=== PATIENT | female | born 1980 | race Caucasian/White ===

== ENCOUNTER 2018-08-08 09:54 | Observation (INO) | payer OTHER ==
[~2018-08-08] VITALS: Ht 172.7 cm; Wt 114.2 kg
[2018-08-08] MEDS ORDERED: ASPIRIN 81 MG TABLET CHEW PO ONE (10:30)
[2018-08-08] MEDS ORDERED: NITROGLYCERIN SINGLE TAB 0.4 MG SL ONE (10:51)
[2018-08-08] MEDS ORDERED: ASPIRIN 81 MG TABLET CHEW ONE (10:51)
[2018-08-08 10:59] LABS: BASOPHILS # (AUTO) 0.02 x10^3/uL (0-0.1); BASOPHILS % (AUTO) 0 % (0-1); EOSINOPHILS # (AUTO) 0.65 x10^3/uL (0-0.4); EOSINOPHILS % (AUTO) 8 % (1-7); LYMPHOCYTES # (AUTO) 2.48 x10^3/uL (1-3.4); LYMPHOCYTES % (AUTO) 31 % (22-44); MD NO; MEAN CORPUSCULAR HEMOGLOBIN 31.4 pg (27.0-34.8); MEAN CORPUSCULAR HGB CONC 34.4 g/dL (32.4-35.8); MEAN CORPUSCULAR VOLUME 91.3 fL (80-100); MEAN PLATELET VOLUME 7.1 fL (7.4-10.4); MONOCYTES # (AUTO) 0.51 x10^3/uL (0.2-0.8); MONOCYTES % (AUTO) 6 % (2-9); NEUTROPHILS # (AUTO) 4.44 x10^3/uL (1.8-6.8); NEUTROPHILS % (AUTO) 55 % (42-75); PLATELET COUNT 358 x10^3/uL (130-400); RED BLOOD COUNT 4.64 x10^6/uL (3.82-5.3); RED CELL DISTRIBUTION WIDTH 13.1 % (9.6-15.2)
[2018-08-08 11:12] LABS: CALCIUM 8.8 mg/dL (8.5-10.1); CHLORIDE 105 mmol/L (98-107)
[2018-08-08] MEDS: NITROGLYCERIN SINGLE TAB 0.4 MG SL PRN ×2 (11:19→11:27)
[2018-08-08 11:20] LABS: ALBUMIN 3.8 g/dL (3.4-5.0); ANION GAP 8 mmol/L (5-15); CREATININE 0.61 mg/dL (0.55-1.02); TROPONIN I < 0.015 ng/mL (0.000-0.045)
[2018-08-08] MEDS ORDERED: OMEP-110 PO (11:24)
[2018-08-08] MEDS ORDERED: SERT25TA PO (11:24)
[2018-08-08] MEDS ORDERED: ACET-1600 PO (11:24)
[2018-08-08] MEDS ORDERED: POLYETHYLENE GLYCOL 17 GM PACKET PO PRN (13:00)
[2018-08-08] MEDS ORDERED: ACETAMINOPHEN 325 MG TABLET PO PRN (13:00)
[2018-08-08] MEDS ORDERED: hydrALAzine 20 MG/ML, 1ML IVPush PRN (13:00)
[2018-08-08] MEDS ORDERED: BISACODYL 10 MG SUPP PR PRN (13:00)
[2018-08-08] MEDS ORDERED: DOCUSATE 100 MG CAPSULE PO PRN (13:00)
[2018-08-08] MEDS ORDERED: NITROGLYCERIN 0.4 MG BOTTLE (25 TABS) SL PRN (13:00)
[2018-08-08] MEDS ORDERED: ONDANSETRON 2MG/ML, 2ML IVPush PRN (13:00)
[2018-08-08] MEDS ORDERED: morphine SULFATE 10 MG/ML, 1ML IVPush PRN (13:00)
[2018-08-08 13:27] LABS: TROPONIN I < 0.015 ng/mL (0.000-0.045)
[2018-08-08 13:52] LABS: THYROID STIMULATING HORMONE 1.5 mIU/L (0.358-3.740)
[2018-08-08] MEDS ORDERED: ENOXAPARIN 40 MG/0.4 ML SQ SCH (15:00)
[2018-08-08 16:27] VITALS: BP 130/81
[2018-08-08 19:04] VITALS: BP 126/83
[2018-08-08 19:55] LABS: TROPONIN I < 0.015 ng/mL (0.000-0.045)
[2018-08-08] MEDS: SODIUM CHLORIDE FLUSH 10ML SYR IVF SCH (20:33)
[2018-08-09 01:57] VITALS: BP 123/81
[2018-08-09 05:42] LABS: CHOL/HDL RATIO 5.2; LDL/HDL RATIO 2.9 (0.5-3.0)
[2018-08-09] MEDS ORDERED: OMEPRAZOLE 20 MG CAPSULE.DR PO SCH (07:30)
[2018-08-09 08:33] VITALS: BP 103/50
[2018-08-09] MEDS ORDERED: SERTRALINE 50MG TABLET PO SCH (09:00)
[2018-08-09] MEDS: SODIUM CHLORIDE FLUSH 10ML SYR IVF SCH (11:07)
[2018-08-09 14:52] VITALS: BP 134/66
== END 2018-08-09 16:42 | disposition home or self-care (01) ==
LOC: ED 10:55 → INTOOBSV 11:57 → EDIP 11:57 → 5SO 14:43
PROVIDERS: ADMIT Hospitalist; ATTEND Hospitalist
DX: R07.9 Chest pain, unspecified (principal); E78.5 Hyperlipidemia, unspecified; R06.02 Shortness of breath; F32.9 Major depressive disorder, single episode, unspecified; F41.1 Generalized anxiety disorder; J45.909 Unspecified asthma, uncomplicated; K21.9 Gastro-esophageal reflux disease without esophagitis; K22.4 Dyskinesia of esophagus; Z82.49 Family history of ischemic heart disease and other diseases of the circulatory system; Z83.3 Family history of diabetes mellitus; Z87.891 Personal history of nicotine dependence
CPT/HCPCS: 36415; 71045; 78452; 80048; 80061; 82040; 82607; 83735; 84443; 84484; 85025; 85379; 90471; 90656; 93005; 93017; 93306; 93880; 93971; 96372; 96374; 99285; A9502; C9898; G0378; J1650; J2405

== ENCOUNTER 2018-09-01 09:53 | Observation (INO) | payer OTHER ==
[~2018-09-01] VITALS: Ht 172.7 cm; Wt 113.8 kg
[~2018-09-01 09:53] MED LIST: ACET-1600 PO; OMEP-110 PO; SERT25TA PO
[2018-09-01] MEDS ORDERED: FAMOTIDINE 20 MG TABLET ONE (10:28)
[2018-09-01] MEDS ORDERED: ONDANSETRON ODT 4 MG ONE (10:28)
[2018-09-01] MEDS ORDERED: MAALOX/HYOSCYAMINE/LIDOCAINE 45 ML BTL ONE (10:28)
[2018-09-01] MEDS ORDERED: ONDANSETRON ODT 4 MG PO ONE (10:30)
[2018-09-01] MEDS ORDERED: MAALOX/HYOSCYAMINE/LIDOCAINE 45 ML BTL PO ONE (10:30)
[2018-09-01] MEDS ORDERED: FAMOTIDINE 20 MG TABLET PO ONE (10:30)
[2018-09-01 10:40] LABS: MEAN CORPUSCULAR HEMOGLOBIN 30.5 pg (27.0-34.8); MEAN CORPUSCULAR HGB CONC 33.6 g/dL (32.4-35.8); MEAN CORPUSCULAR VOLUME 90.9 fL (80-100); MEAN PLATELET VOLUME 7.1 fL (7.4-10.4); PLATELET COUNT 314 x10^3/uL (130-400); RED BLOOD COUNT 4.47 x10^6/uL (3.82-5.3)
[2018-09-01 10:50] LABS: ALANINE AMINOTRANSFERASE 41 U/L (12-78); ALBUMIN 3.5 g/dL (3.4-5.0); ANION GAP 7 mmol/L (5-15); CALCIUM 8.3 mg/dL (8.5-10.1); CHLORIDE 108 mmol/L (98-107); CREATININE 0.65 mg/dL (0.55-1.02)
[2018-09-01 10:54] LABS: ALKALINE PHOSPHATASE 78 U/L (45-117); BILIRUBIN,TOTAL 0.3 mg/dL (0.2-1.0); TOTAL PROTEIN 6.8 g/dL (6.4-8.2); TROPONIN I < 0.015 ng/mL (0.000-0.045)
[2018-09-01 11:02] LABS: MD YES
[2018-09-01 11:04] LABS: BANDS%(MANUAL) 2 % (0-7); EOS#(MANUAL) 2.86 x10^3/uL (0.0-0.4); EOS% (MANUAL) 28 % (1-7); LYMPH#(MANUAL) 2.14 x10^3/uL (1-3.4); LYMPHS% (MANUAL) 21 % (22-44); MONOS#(MANUAL) 0.51 x10^3/uL (0.3-2.7); MONOS% (MANUAL) 5 % (2-9); SEG#(MANUAL) 4.49 x10^3/uL (1.8-6.8); SEGS% (MANUAL) 44 % (42-75)
[2018-09-01 11:05] LABS: <PLATELET ESTIMATE> ADEQUATE; <PLT MORPHOLOGY> NORMAL PLT MORPH; <RBC MORPHOLOGY> NORMAL
[2018-09-01 11:39] LABS: HCG UR SG 1.016 (1.003-1.030); MICROSCOPIC AUTO
[2018-09-01 11:40] LABS: CULTURE INDICATED? YES
[2018-09-01] MEDS ORDERED: SODIUM CHLORIDE FLUSH 10ML SYR IVF ONE (12:30)
[2018-09-01] MEDS ORDERED: OMEP-110 PO (12:59)
[2018-09-01] MEDS ORDERED: MULT-6 PO (12:59)
[2018-09-01] MEDS ORDERED: SERT25TA PO (12:59)
[2018-09-01] MEDS ORDERED: ONDANSETRON 2MG/ML, 2ML IVPush PRN (13:00)
[2018-09-01] MEDS ORDERED: PROMETHAZINE 25 MG/ML, 1ML IM PRN (13:00)
[2018-09-01 14:00] VITALS: BP 139/79
[2018-09-01] MEDS: CEFOTETAN PMX 1GM/50ML 50 ML IVPB SCH (15:32)
[2018-09-01] MEDS: D5%-0.45NACL+KCL 20MEQ 1,000 ML IV SCH ×2 (15:32→19:21)
[2018-09-01] MEDS ORDERED: BUPIVACAINE/PF-EPI 0.5% 1:200K ONE (15:52)
[2018-09-01] MEDS ORDERED: MIDAZOLAM 1 MG/ML, 2ML ONE (17:44)
[2018-09-01] MEDS ORDERED: FENTANYL PF 250 MCG/5ML ONE (17:44)
[2018-09-01 17:45] LABS: CLOSTRIDIUM DIFFICILE ANTIGEN NEGATIVE; CLOSTRIDIUM DIFFICILE TOXIN NEGATIVE (Negative)
[2018-09-01] MEDS ORDERED: PROPOFOL 10 MG/ML, 20ML ONE (17:45)
[2018-09-01] MEDS ORDERED: DEXAMETHASONE 4 MG/ML, 1ML ONE (17:45)
[2018-09-01] MEDS ORDERED: ONDANSETRON 2MG/ML, 2ML ONE (17:45)
[2018-09-01] MEDS ORDERED: ROCURONIUM 10MG/ML,5ML ONE (17:45)
[2018-09-01] MEDS ORDERED: SUCCINYLCHOLINE 20 MG/ML, 10ML ONE (17:46)
[2018-09-01] MEDS ORDERED: KETOROLAC 30 MG/1 ML ONE (18:01)
[2018-09-01] MEDS ORDERED: BUPIVACAINE/PF-EPI 0.5% 1:200K INFIL ONE (18:18)
[2018-09-01] MEDS ORDERED: ALBUTEROL SULFATE 2.5 MG/3 ML NPPB PRN (18:30)
[2018-09-01] MEDS ORDERED: hydrALAzine 20 MG/ML, 1ML IV PRN (18:30)
[2018-09-01] MEDS ORDERED: LABETALOL 5MG/ML, 20ML IV PRN (18:30)
[2018-09-01] MEDS ORDERED: DIAZEPAM 5 MG/ML, 2ML IVPush PRN (18:30)
[2018-09-01] MEDS ORDERED: PROMETHAZINE 12.5 MG SUPP PR PRN (18:30)
[2018-09-01] MEDS ORDERED: PROMETHAZINE 25 MG/ML, 1ML IV PRN (18:30)
[2018-09-01] MEDS ORDERED: MEPERIDINE/PF 25MG/0.5ML IVPush PRN (18:30)
[2018-09-01] MEDS ORDERED: MORPHINE SULFATE 4 MG/ML, 1ML IVPush PRN (18:30)
[2018-09-01] MEDS ORDERED: FENTANYL PF 100 MCG/2ML IV PRN (18:30)
[2018-09-01] MEDS ORDERED: EPHEDRINE 50 MG/ML, 1ML IVPush PRN (18:30)
[2018-09-01] MEDS ORDERED: MIDAZOLAM 1 MG/ML, 2ML IV PRN (18:30)
[2018-09-01] MEDS ORDERED: OXYcodone 5 MG/5 ML ORAL.SOL UDC PO PRN (18:30)
[2018-09-01] MEDS ORDERED: ONDANSETRON 2MG/ML, 2ML IV PRN (18:30)
[2018-09-01] MEDS ORDERED: HALOPERIDOL 5 MG/ML IV PRN (18:30)
[2018-09-01] MEDS ORDERED: HYDROmorphone 1 MG/ML, 1ML IV PRN (18:30)
[2018-09-01] MEDS ORDERED: ONDANSETRON ODT 8 MG PO PRN (18:30)
[2018-09-01] MEDS ORDERED: ACETAMINOPHEN 325 MG TABLET PO PRN (18:30)
[2018-09-01] MEDS ORDERED: ACETAMINOPHEN 650 MG/20.3 ML UDC ONE (19:13)
[2018-09-01] MEDS ORDERED: OXYcodone 5 MG/5 ML ORAL.SOL UDC ONE (19:13)
[2018-09-01 19:40] VITALS: BP 112/60
[2018-09-01] MEDS: morphine SULFATE 10 MG/ML, 1ML IVPush PRN ×5 (20:24→23:49)
[2018-09-02] MEDS: CEFOTETAN PMX 1GM/50ML 50 ML IVPB SCH (00:43)
[2018-09-02] MEDS: OXYcodone/APAP 7.5/325MG TABLET PO PRN ×3 (00:43→12:08)
[2018-09-02 01:29] VITALS: BP 119/79
[2018-09-02] MEDS: D5%-0.45NACL+KCL 20MEQ 1,000 ML IV SCH ×2 (02:14→08:25)
[2018-09-02] MEDS: morphine SULFATE 10 MG/ML, 1ML IVPush PRN (04:26)
[2018-09-02 07:21] VITALS: BP 105/66
[2018-09-02] MEDS ORDERED: OXYC-306 PO (09:54)
[2018-09-02] MEDS ORDERED: ONDA4TAB7 PO (09:55)
== END 2018-09-02 12:54 | disposition home or self-care (01) ==
LOC: ED 10:15 → EDIP 12:41 → 4NOR 13:48 → DCLOUNGE 09-02 12:45
PROVIDERS: ADMIT Surgery; ATTEND Surgery
DX: K80.10 Calculus of gallbladder with chronic cholecystitis without obstruction (principal); F32.9 Major depressive disorder, single episode, unspecified; J45.909 Unspecified asthma, uncomplicated; K21.9 Gastro-esophageal reflux disease without esophagitis; K66.0 Peritoneal adhesions (postprocedural) (postinfection); F41.1 Generalized anxiety disorder; K82.8 Other specified diseases of gallbladder; Z79.899 Other long term (current) drug therapy
CPT/HCPCS: 36415; 47562; 76700; 80053; 81001; 81025; 83690; 84484; 85025; 87086; 87324; 88304; 93005; 96365; 96366; 96375; 99284; G0378; J0330; J1100; J2250; J2270; J2405; J2704; J3010; J3480; J3490; Q0162; J1885